=== PATIENT | female | born 1950 | race Caucasian/White ===

== ENCOUNTER → 2022-05-18 | Outpatient (CLI) | payer MEDICARE, OTHER ==
--- NOTE | 2022-05-18 16:33 | BD ---
EXAMINATION TYPE: Axial Bone Density DATE OF EXAM: 05/18/2022 COMPARISON: FIRST STUDY AT [facility] CLINICAL HISTORY: 72 years year old Female. ICD-10 CODE: M85.80 OSTEOPENIA Height: 67.4 Weight: 196 FRAX RISK QUESTIONS: History of Fracture in Adulthood: YES 3. Menopause before 45: AT 47 Current Tobacco Use: IN THE PAST, STOPPED ABOUT 10 YRS RISK FACTORS HISTORY OF: HX OF FIBULA FX History of Wrist Fracture: BOTH A CHILD Family History of Osteoporosis: YES, MOTHER NO HIP FX Postmenopausal woman: YES, AT AGE 47 YRS OLD Take estrogen and/or progesterone medications: YES, FOR ABOUT 1 YR, DEVELOPED CLOT Lost more than 2 inches in height since high school: YES Hyperparathyroidism: NO Adrenal Insufficiency: NO MEDICATIONS: Osteoporosis Medications: YES, IN THE PAST FOR ABOUT 5 YRS, 10 YRS AGO, FOSAMAX Additional Medications: BP MEDS, REFLUX MEDS, STATIN FOR CHOLESTEROL, VIT D AND CALCIUM, AND MULTIVIT SEGOVIA Additional History: HYPERTENSION, REFLUX, CHOLESTEROL EXAM MEASUREMENTS: Bone mineral densitometry was performed using the [employer] System. Bone mineral density as measured about the Lumbar spine is: ----- L1-L4(G/cm2): 0.896 T Score Values are as follows: ----- L1: -2.4 ----- L2: -3.2 ----- L3: -2.2 ----- L4: -2.8 ----- L1-L4: -2.4 Bone mineral density FIRST [facility] DEXA STUDY Bone mineral density about the R hip (g/cm2): 0.730 Bone mineral density about the L hip (g/cm2): 0.761 T Score values are as follows: -----R Neck: -2.1 -----L Neck: -2.0 -----R Total: -2.2 -----L Total: -2.0 Bone mineral density FIRST [facility] DEXA STUDY FRAX%s: The graph provided illustrates a 19.3% chance for a major osteoporotic fx and a 4.1% chance f or the hips probability for fx in 10 years time. IMPRESSION: Osteopenia (T Score between -2.5 and -1). There is slightly increased risk of fracture and the patient may be considered for treatment. Re-Screen 2-5 years. NOTE: T-SCORE=SD OF THE YOUNG ADULT MEAN.
--- NOTE | 2022-05-21 08:36 | MM ---
Reason for Exam: Screening (asymptomatic). Last mammogram was performed 2 year(s) and 8 month(s) ago. Patient History: Menarche at age 14. Patient has no children. Postmenopausal. Maternal aunt had breast cancer, age 88. Risk Values: Loulou 5 year model risk: 1.8%. NCI Lifetime model risk: 4.6%. Prior Study Comparison: 10/06/2018 Bilateral MG screening mammo w CAD - 2, Unknown. 10/09/2019 Bilateral MG screening mammo w CAD - 2, Unknown. Tissue Density: The breast tissue is heterogeneously dense. This may lower the sensitivity of mammography. Findings: Analyzed By CAD. No new suspicious mass in either breast. Grouped punctate calcifications within the lower inner right breast anterior depth and within the upper outer left breast posterior depth. Benign-appearing round calcifications within both breasts. Overall Assessment: Incomplete: need additional imaging evaluation, BI-RAD 0 Management: Diagnostic Mammogram of both breasts. A clinical breast exam by your physician is recommended on an annual basis and results should be correlated with mammographic findings. [facility] will attempt to contact patient to return for supplemental views and ultrasound if indicated. Electronically signed and approved by: Benigno Downey D.O.
== END | disposition home or self-care (01) ==
LOC: RADMAMWWP 08:36
PROVIDERS: ATTEND Internal Medicine
DX: Z12.31 Encounter for screening mammogram for malignant neoplasm of breast (principal); M85.80 Other specified disorders of bone density and structure, unspecified site; Z13.820 Encounter for screening for osteoporosis
CPT/HCPCS: 77063; 77067; 77080

== ENCOUNTER 2022-05-24 08:19 | Day surgery (SDC) | payer MEDICARE ==
[2022-05-22 13:50] VITALS: BMI 28.8
[~2022-05-24 08:19] MED LIST: LACTATED RINGERS 1,000 ML IV SCH
[2022-05-24 09:20] VITALS: TEMP 98.5
[2022-05-24] MEDS ORDERED: PROPOFOL 10 MG/ML 20 ML VIAL IV ONE (09:54)
--- NOTE | 2022-05-24 09:57 | P.GSHP ---
History of Present Illness H&P Date: 05/24/22 Chief Complaint: Screening colonoscopy Is a 72-year-old female who presents today for screening colonoscopy. Patient denies a significant GI complaints. The patient was seen Dr. Ireland. Past Medical History Past Medical History: Deep Vein Thrombosis (DVT), Hyperlipidemia, Hypertension, Neurologic Disorder Additional Past Medical History / Comment(s): HX MIGRAINES. HX DVT LOWER LEG (NOT SURE WHICH ONE) History of Any Multi-Drug Resistant Organisms: None Reported Past Surgical History: Orthopedic Surgery, Tonsillectomy Additional Past Surgical History / Comment(s): COLONOSCOPY. RT SHOULDER SX Past Anesthesia/Blood Transfusion Reactions: No Reported Reaction Smoking Status: Former smoker - Past Family History Mother Family Medical History: No Reported History Medications and Allergies Home Medications Medication Instructions Recorded Confirmed Type Atorvastatin [Lipitor] 20 mg PO HS 05/22/22 05/24/22 History SUMAtriptan succinate 100 mg PO DAILY PRN 05/22/22 05/24/22 History amLODIPine [Norvasc] 5 mg PO HS 05/22/22 05/24/22 History polyethylene glycoL 3350 [Miralax] 17 gm PO DAILY 05/24/22 05/24/22 History Allergies Allergy/AdvReac Type Severity Reaction Status Date / Time No Known Allergies Allergy Verified 05/24/22 09:04 Surgical - Exam Vital Signs Temp Pulse Resp BP Pulse Ox 98.5 F 82 14 149/79 97 05/24/22 09:14 05/24/22 09:14 05/24/22 09:14 05/24/22 09:14 05/24/22 09:14 - General well developed, well nourished, no distress - Eyes PERRL - ENT normal pinna - Neck no masses - Respiratory normal expansion - Cardiovascular Rhythm: regular - Abdomen Abdomen: soft, non tender Assessment and Plan Assessment: We'll perform screening colonoscopy
--- NOTE | 2022-05-24 10:14 | P.OP ---
Date of Procedure: 05/24/22 Preoperative Diagnosis: Screening colonoscopy Postoperative Diagnosis: Diverticulosis Internal and external hemorrhoids Procedure(s) Performed: Colonoscopy Anesthesia: MAC Surgeon: Crow Botello Pathology: none sent Condition: stable Disposition: PACU Description of Procedure: The patient's placed on the endoscopy table in the lateral position. She received IV sedation. Digital rectal exam was performed. This revealed internal and external hemorrhoids. The flexible colonoscope was then placed p atient anus and passed throughout the entire colon. The ileocecal valve was visualized. Cecum, ascending and transverse colon appeared normal. In the descending and sigmoid colon there were diverticular changes noted. There was no evidence of diverticulitis. The scope was then brought back the rectum this appeared normal. The scope was brought back and in the anus internal and external hemorrhoids are noted. Scope was withdrawn for patient.
[2022-05-24 10:34] VITALS: BP 124/81; PULSE 72; RESP 18
== END 2022-05-24 10:56 | disposition home or self-care (01) ==
LOC: ORWHC2ENDO 08:19
PROVIDERS: ATTEND Surgery
DX: Z12.11 Encounter for screening for malignant neoplasm of colon (principal); K64.4 Residual hemorrhoidal skin tags; K64.8 Other hemorrhoids; K57.30 Diverticulosis of large intestine without perforation or abscess without bleeding; E78.5 Hyperlipidemia, unspecified; I10 Essential (primary) hypertension; G43.909 Migraine, unspecified, not intractable, without status migrainosus; Z86.718 Personal history of other venous thrombosis and embolism; Z90.89 Acquired absence of other organs; Z87.891 Personal history of nicotine dependence; Z79.899 Other long term (current) drug therapy
CPT/HCPCS: G0121; J2704; 45378

== ENCOUNTER → 2022-11-20 | Outpatient (CLI) | payer MEDICARE, OTHER ==
--- NOTE | 2022-11-20 08:47 | MM ---
Reason for Exam: Follow-up at short interval from prior study. Last screening mammogram was performed 6 month(s) ago. Patient History: Menarche at age 14. Patient has no children. Postmenopausal. Estrogen and Progesterone for 4 months. Maternal aunt had breast cancer, age 88. Risk Values: Loulou 5 year model risk: 1.8%. NCI Lifetime model risk: 4.6%. Prior Study Comparison: 10/06/2018 Bilateral MG screening mammo w CAD - 2, Unknown. 10/09/2019 Bilateral MG screening mammo w CAD - 2, Unknown. 05/18/2022 Bilateral MG 3D screening mammo w/cad, [facility]. 05/23/2022 Bilateral MG 3D work up w/cad [facility], [facility]. Tissue Density: There are scattered fibroglandular densities. Findings: Analyzed By CAD. Persistent calcification which have increased from 2019 4.8 cm from the nipple on RMLO view measuring approximately 12 x 6 mm in area. No evidence for suspicious masses, calcifications or distortions in the left breast. Overall Assessment: Suspicious, BI-RAD 4 Management: Stereotactic Core Biopsy of the right breast. A clinical breast exam by your physician is recommended on an annual basis and results should be correlated with mammographic findings. This exam should not preclude additional follow-up of suspicious palpable abnormalities. Results were given to the patient verbally at the time of exam. Electronically signed and approved by: Alden Bernal DO
== END | disposition home or self-care (01) ==
LOC: RADMAMWWP 08:00
PROVIDERS: ATTEND Family Medicine
DX: R92.8 Other abnormal and inconclusive findings on diagnostic imaging of breast (principal); Z80.3 Family history of malignant neoplasm of breast; Z78.0 Asymptomatic menopausal state
CPT/HCPCS: 77066; G0279; 77062

== ENCOUNTER → 2022-11-26 | Day surgery (SDC) | payer MEDICARE, OTHER ==
[2022-11-26 10:22] VITALS: RESP 16
[2022-11-26 11:17] VITALS: BP 160/77; PULSE 76; TEMP 98.1
--- NOTE | 2022-11-29 14:32 | MM ---
Risk Values: Loulou 5 year model risk: 1.8%. NCI Lifetime model risk: 4.6%. Prior Study Comparison: 05/18/2022 Bilateral MG 3D screening mammo w/cad, [facility]. 05/23/2022 Bilateral MG 3D work up w/cad [facility], [facility]. 11/20/2022 Bilateral MG 3D diag mammo w/cad [facility], [facility]. Pathology Description: Location: middle. Marker Left Behind. Specimen Radiograph. Calcium Found: Yes Approach: CC FA Needle Type: Eviva Cores: 7 Skin Nicks: 1 Gauge: 9 The calcification in question within the right breast were targeted by the undersigned. Procedure was performed by the undersigned. Informed consent was obtained and all of the patients questions were answered. The standard sterile technique was utilized and appropriate local anesthesia was obtained with 1% lidocaine. Mammotome probe was advanced and multiple core samples were obtained and sent to pathology for interpretation. Microclip marker was deployed at the site of biopsy. Post procedural mammogram demonstrates appropriate deployment of radiopaque clip marker. The patient tolerated the procedure well and left the department in stable condition. Pathology results are pending. Impression: Successful stereotactic core biopsy right breast. Pathology Results: Result: Benign, Fibroadenomatoid hyperplasia. RIGHT BREAST, STEREOTACTIC NEEDLE CORE BIOPSY: Fibroadenomatoid hyperplasia with calcifications and background fibrocystic changes. Overall Assessment: Benign Management: Diagnostic Mammogram of the right breast in 6 months. Electronically signed and approved by: Trey Cordon M.D. Radiologis
== END ==
LOC: RADMAMWWP 09:47
PROVIDERS: ATTEND Family Medicine
DX: N60.11 Diffuse cystic mastopathy of right breast (principal)
CPT/HCPCS: 88305; 19081; A4648; J2001

== ENCOUNTER → 2023-03-20 | Outpatient (CLI) | payer MEDICARE, OTHER ==
[2023-03-20 17:28] LABS: HCT 45.4 % (37.2-46.3); MCH 32.9 pg (27.0-32.0); MCV 99.6 FL (80.0-97.0); Mean Platelet Volume 10.6 FL (9.5-12.2); NRBC Per 100 WBC 0 X 10*3/uL (0.00-0.01); Platelet Count 257 X 10*3/uL (140-440); RBC 4.56 X 10*6/uL (4.10-5.20); RDW 13.3 % (11.5-14.5); WBC 4.94 X 10*3/uL (4.50-10.00)
[2023-03-20 17:51] LABS: ALT 37 U/L (8-44); AST 30 U/L (13-35); Albumin 4.4 d/dL (3.8-4.9); Alkaline Phosphatase 62 U/L (41-126); BUN/Creat Ratio 15.12 Ratio (12.00-20.00); Blood Urea Nitrogen 12.1 mg/dL (9.0-27.0); Calcium 10.1 mg/dL (8.7-10.3); Carbon Dioxide 25.3 mmol/L (21.6-31.8); Chloride 104 mmol/L (96-109); Chol/HDL Ratio 2.82 Ratio; Globulin 2.2 d/dL (1.6-3.3); Glucose 110 mg/dL (70-110); LDL Cholesterol,Calculated 114.7 mg/dL (0.0-131.0); Potassium 4.2 mmol/L (3.5-5.5); Sodium 140 mmol/L (135-145); Total Bilirubin 0.6 mg/dL (0.3-1.2); Total Protein 6.6 d/dL (6.2-8.2)
== END | disposition home or self-care (01) ==
LOC: LABWHC1 07:36
PROVIDERS: ATTEND Family Medicine
DX: I10 Essential (primary) hypertension (principal); M85.80 Other specified disorders of bone density and structure, unspecified site; E66.9 Obesity, unspecified; E78.5 Hyperlipidemia, unspecified
CPT/HCPCS: 36415; 80053; 80061; 82306; 82607; 82746; 83036; 84443; 85027; 86803

== ENCOUNTER → 2023-05-31 | Outpatient (CLI) | payer MEDICARE, OTHER ==
--- NOTE | 2023-05-31 09:14 | MM ---
Reason for Exam: Follow-up at short interval from prior study. Last screening mammogram was performed 6 month(s) ago. Patient History: Menarche at age 14. Patient has no children. Postmenopausal. Previous Hyperplasia w/o Atypia at age 72. Estrogen and Progesterone for 4 months. 11/26/2022, Benign MG stereo VAD BX RT on the right side. Maternal aunt had breast cancer, age 88. Risk Values: Loulou 5 year model risk: 2.1%. NCI Lifetime model risk: 5.2%. Prior Study Comparison: 10/06/2018 Bilateral MG screening mammo w CAD - 2, Unknown. 10/09/2019 Bilateral MG screening mammo w CAD - 2, Unknown. 05/18/2022 Bilateral MG 3D screening mammo w/cad, [facility]. 05/23/2022 Bilateral MG 3D work up w/cad [facility], [facility]. 11/20/2022 Bilateral MG 3D diag mammo w/cad [facility], [facility]. Tissue Density: Right: The breast tissue is heterogeneously dense. This may lower the sensitivity of mammography. Findings: Analyzed By CAD. Benign calcifications noted. No evidence for mass or distortion. Overall Assessment: Benign, BI-RAD 2 Management: Screening Mammogram of both breasts in 6 months. . Results were given to the patient verbally at the time of exam. Patient should continue monthly self-breast exams. A clinical breast exam by your physician is recommended on an annual basis. This exam should not preclude additional follow-up of suspicious palpable abnormalities. Note on Loulou scores and lifetime risk: 1. A Loulou score greater than 3% is considered moderate risk. If this is the case, consider specialist referral to assess eligibility for a risk reducing agent. 2. If overall lifetime risk for the development of breast cancer is 20% or higher, the patient may qualify for future screening with alternating mammogram and breast MRI. Electronically signed and approved by: Trey Cordon M.D. Radiologis
== END | disposition home or self-care (01) ==
LOC: RADMAMWWP 06:47
PROVIDERS: ATTEND Family Medicine
DX: R92.331 Mammographic heterogeneous density, right breast (principal); R92.8 Other abnormal and inconclusive findings on diagnostic imaging of breast; Z78.0 Asymptomatic menopausal state; Z80.3 Family history of malignant neoplasm of breast
CPT/HCPCS: 77065; G0279; 77061

== ENCOUNTER → 2023-10-28 | Outpatient (CLI) | payer MEDICARE, OTHER ==
--- NOTE | 2023-10-28 07:49 | MM ---
Reason for Exam: Follow-up at short interval from prior study. Last screening mammogram was performed 11 month(s) ago. Patient History: Menarche at age 14. Patient has no children. Postmenopausal. Previous Hyperplasia w/o Atypia at age 72. Estrogen and Progesterone for 4 months. 11/26/2022, Benign MG stereo VAD BX RT on the right side. Maternal aunt had breast cancer, age 88. Risk Values: Loulou 5 year model risk: 2.1%. NCI Lifetime model risk: 5.2%. Tissue Density: The breasts are heterogeneously dense, which may obscure small masses. Findings: Analyzed By CAD. There is no suspicious group of microcalcifications or new suspicious mass. Benign-appearing calcifications bilaterally. No finding to correlate with patient's right-sided pain. Overall Assessment: Benign, BI-RAD 2 Management: Screening Mammogram of both breasts in 1 year. Results were given to the patient verbally at the time of exam. Patient should continue monthly self-breast exams. A clinical breast exam by your physician is recommended on an annual basis. This exam should not preclude additional follow-up of suspicious palpable abnormalities. Note on Loulou scores and lifetime risk: 1. A Loulou score greater than 3% is considered moderate risk. If this is the case, consider specialist referral to assess eligibility for a risk reducing agent. 2. If overall lifetime risk for the development of breast cancer is 20% or higher, the patient may qualify for future screening with alternating mammogram and breast MRI. Electronically signed and approved by: Alden Bernal DO
== END | disposition home or self-care (01) ==
LOC: RADMAMWWP 07:12
PROVIDERS: ATTEND Family Medicine
DX: R92.333 Mammographic heterogeneous density, bilateral breasts (principal); Z78.0 Asymptomatic menopausal state; Z80.3 Family history of malignant neoplasm of breast
CPT/HCPCS: 77066; G0279; 77062

== ENCOUNTER → 2024-11-25 | Outpatient (CLI) | payer MEDICARE ==
--- NOTE | 2024-11-25 10:58 | MM ---
Reason for Exam: Screening (asymptomatic). Last mammogram was performed 1 year(s) and 1 month(s) ago. Patient History: Menarche at age 14. Patient has no children. Postmenopausal. Previous Hyperplasia w/o Atypia at age 72. Estrogen and Progesterone for 4 months. 11/26/2022, Benign MG stereo VAD BX RT on the right side. Maternal aunt had breast cancer, age 88. Risk Values: Loulou 5 year model risk: 2.1%. NCI Lifetime model risk: 4.9%. Prior Study Comparison: 11/20/2022 Bilateral MG 3D diag mammo w/cad [facility], [facility]. 05/31/2023 Right MG 3D diag mammo w/[facility], [facility]. 10/28/2023 Bilateral MG 3D diag mammo w/cad [facility], [facility]. Tissue Density: The breasts are heterogeneously dense, which may obscure small masses. Findings: Analyzed By CAD. There is no suspicious group of microcalcifications or new suspicious mass in either breast. Overall Assessment: Benign, BI-RAD 2 Management: Screening Mammogram of both breasts in 1 year. . Patient should continue monthly self-breast exams. A clinical breast exam by your physician is recommended on an annual basis. This exam should not preclude additional follow-up of suspicious palpable abnormalities. Note on Loulou scores and lifetime risk: 1. A Loulou score greater than 3% is considered moderate risk. If this is the case, consider specialist referral to assess eligibility for a risk reducing agent. 2. If overall lifetime risk for the development of breast cancer is 20% or higher, the patient may qualify for future screening with alternating mammogram and breast MRI. [facility], , 11/25/2024 7:31 AM. Electronically signed and approved by: Trey Cordon M.D. Radiologis
== END | disposition home or self-care (01) ==
LOC: RADMAMWWP 07:16
PROVIDERS: ATTEND Family Medicine
DX: Z12.31 Encounter for screening mammogram for malignant neoplasm of breast (principal); R92.333 Mammographic heterogeneous density, bilateral breasts; Z78.0 Asymptomatic menopausal state; Z80.3 Family history of malignant neoplasm of breast
CPT/HCPCS: 77063; 77067